=== PATIENT | male | born 1960 | race American Indian/Alaskan Native ===

== ENCOUNTER 2017-03-05 10:06 | Outpatient (CLI) | payer BC ==
--- NOTE | 2017-03-11 08:04 | Vascular Lab Report ---
CAROTID DUPLEX STUDY: RIGHT PSVEDV CCA PROX:[id number] CCA DIST:7127 ICA PROX:6925 ICA MID:7432 ICA DIST:6028 ECA: 6817 VERT: 55 22 LEFT PSVEDV CCA PROX:[id number] CCA DIST:7523 ICA PROX:5516 ICA MID:7330 ICA DIST:5524 ECA: 7315 VERT: 61 24 REASON FOR EXAM: Carotid artery stenosis/facial numbness. COMMENTS ON THE RIGHT: Doppler frequency analysis is consistent with 16 to 49 percent diameter reduction of the internal carotid artery. Minimal amount of plaque is seen. The common carotid artery is patent. The external carotid artery is patent. The vertebral artery has antegrade flow. COMMENTS ON THE LEFT: Doppler frequency analysis is consistent with 16 to 49 percent diameter reduction of the internal carotid artery. Minimal amount of plaque is seen. The common carotid artery is patent. The external carotid artery is patent. The vertebral artery has antegrade flow. IMPRESSION: Less than 50% diameter reduction in the internal carotid arteries bilaterally. Consider repeat carotid artery duplex in 12 months.
== END 2017-03-05 10:07 | disposition home or self-care (01) ==
LOC: VAS 10:06
DX: R09.89 Other specified symptoms and signs involving the circulatory and respiratory systems (principal); R20.0 Anesthesia of skin
CPT/HCPCS: 93880